=== PATIENT | female | born 1945 | race American Indian/Alaskan Native ===

== ENCOUNTER 2017-02-08 10:00 | Day surgery (SDC) | payer MEDICARE, OTHER ==
[2017-02-02 08:41] VITALS: BMI 42.1
[~2017-02-08 10:00] MED LIST: Midazolam 2 MG/2 ML VIAL ONE
--- NOTE | 2017-02-09 09:02 | CT ---
PROCEDURE: Date of procedure: 02/08/2017 Procedure: 1. CT-guided lung mass biopsy, CPT [address] Guidance for biopsy, [address] Medications: The patient was sedated by anesthesiologist along with physiologic monitoring. Radiation: 693.81 mGy-cm HISTORY: Right lower lobe lung mass TECHNIQUE: Following informed consent, the Pt's chest was marked. The Pt was placed prone on the CT table and procedure time out was performed. A noncontrast CT scan was performed. Noncontrast CT scan confirmed the presence of a peripheral 3.2 cm x 2.6 cm mass. A skin localizer was placed on the patient's right back and a repeat CT scan was performed. The skin was marked, prepped, and draped in the usual sterile fashion. After the skin was anesthetized with lidocaine and the patient sedated by the anesthesiologist, a 20 gauge core needle was advanced percutaneously under direct CT guidance into the mass. Upon confirmation of needle position, four 20-gauge core specimens were obtained and sent for routine pathology. The needle was removed and a xeroform dressing was applied. A post biopsy CT scan showed no pneumothorax. IMPRESSION: CT guided core biopsy right lung mass.
--- NOTE | 2017-02-09 09:11 | RAD ---
PROCEDURE: CHEST RADIOGRAPH, 1 VIEW HISTORY: Status post right lung mass biopsy. COMPARISON: None available. FINDINGS: LUNGS: Lungs are clear. Right lower lobe mass seen on CT scan partial obscured by the diaphragm PLEURA: No pneumothorax. CARDIOVASCULAR: Normal. OSSEOUS STRUCTURES: No significant abnormalities. VISUALIZED UPPER ABDOMEN: Normal. OTHER FINDINGS: Right IJ port in place. IMPRESSION: No pneumothorax following lung biopsy.
== END 2017-02-08 13:00 | disposition home or self-care (01) ==
LOC: C.SPRAD 10:00
PROVIDERS: ATTEND Internal Medicine Hematology & Oncology
DX: R91.8 Other nonspecific abnormal finding of lung field (principal)
CPT/HCPCS: 32405; 71010; 77012; 84233; 88305; 88342; J2250; J3010